=== PATIENT | female | born 1995 | race Caucasian/White ===

== ENCOUNTER 2023-09-17 10:40 | Day surgery (SDC) | payer BC ==
[~2023-09-17] VITALS: Ht 137.2 cm; Wt 41.7 kg
[~2023-09-17 10:40] MED LIST: CLAR10CA3 PO; EMGA120I; FAMO40TA3 PO; IBUP-1114 PO; MEDR150I12; NS 1,000 ML IV ONE; OMEP40CA5 PO; bcp
[2023-09-17] MEDS ORDERED: LIDOCAINE 2% 100MG/5ML SDV (FOR ANES.) As Ordered ONE (11:14)
[2023-09-17] MEDS ORDERED: propofoL 200 MG/20 ML VIAL As Ordered ONE (11:14)
[2023-09-17] MEDS ORDERED: fentaNYL 100 MCG/2 ML INJECTION As Ordered ONE (11:14)
[2023-09-17 12:46] VITALS: TEMP 98.2
[2023-09-17 13:13] VITALS: BP 123/77; O2SAT 99
== END 2023-09-17 13:18 | disposition home or self-care (01) ==
LOC: M OPP 10:40
PROVIDERS: ATTEND Internal Medicine Gastroenterology
DX: K29.70 Gastritis, unspecified, without bleeding (principal); R63.4 Abnormal weight loss; R11.0 Nausea; R12 Heartburn; F17.200 Nicotine dependence, unspecified, uncomplicated; Z79.1 Long term (current) use of non-steroidal anti-inflammatories (NSAID); Z79.3 Long term (current) use of hormonal contraceptives; Z79.630 Long term (current) use of alkylating agent; Z79.899 Other long term (current) drug therapy; Z88.0 Allergy status to penicillin; Z91.040 Latex allergy status
CPT/HCPCS: 43239; 88305; J3010

== ENCOUNTER 2024-03-07 11:35 | Day surgery (SDC) | payer BC ==
[~2024-03-07] VITALS: Ht 137.2 cm; Wt 38.7 kg
[~2024-03-07 11:35] MED LIST changes: +AJOV225I SC; -NS 1,000 ML IV ONE; +NS 250 ML IV ONE
[2024-03-07] MEDS ORDERED: GLYCOPYRROLATE INJ 0.2 MG/ML 2 ML VIAL As Ordered ONE (13:41)
[2024-03-07] MEDS ORDERED: propofoL 200 MG/20 ML VIAL As Ordered ONE (13:42)
[2024-03-07] MEDS ORDERED: LIDOCAINE 2% 100MG/5ML SDV (FOR ANES.) As Ordered ONE (13:46)
[2024-03-07 13:58] VITALS: TEMP 98.3
[2024-03-07 14:15] VITALS: BP 100/59; O2SAT 98
== END 2024-03-07 14:35 | disposition home or self-care (01) ==
LOC: M OPP 11:35
PROVIDERS: ATTEND Internal Medicine Gastroenterology
DX: R11.0 Nausea (principal); K30 Functional dyspepsia; K21.9 Gastro-esophageal reflux disease without esophagitis; Z79.899 Other long term (current) drug therapy; F17.210 Nicotine dependence, cigarettes, uncomplicated; G43.909 Migraine, unspecified, not intractable, without status migrainosus; Z88.0 Allergy status to penicillin; Z91.040 Latex allergy status
CPT/HCPCS: 43235; 91035; J1596